=== PATIENT | female | born 1975 | race African-American/Black ===

== ENCOUNTER 2023-03-22 12:17 | Outpatient (CLI) | payer OTHER | END 2023-03-22 19:08 | disposition home or self-care (01) | LOC: RESP 12:17 | PROVIDERS: ATTEND Family Medicine | DX: R53.83 Other fatigue (principal); R01.1 Cardiac murmur, unspecified; M06.9 Rheumatoid arthritis, unspecified; E03.8 Other specified hypothyroidism | CPT/HCPCS: 93005 ==